=== PATIENT | female | born 1945 | race Caucasian/White ===

== ENCOUNTER 2019-09-27 11:25 | Day surgery (SDC) | payer OTHER, SELFPAY ==
[2019-09-25 07:45] VITALS: BMI 28.1
[2019-09-27] VITALS (9 sets, daily range): BP systolic 115–161; BP diastolic 64–77; PULSE 69–96; RESP 11–28; TEMP 36.1–36.5; O2SAT 94–100; BMI 27.6
--- NOTE | 2019-09-27 | PATH_ITS ---
[facility] Accession Number: [id number] . 01 Material submitted: . vertebral column - L1 VERTEBRAL BIOPSY . 02 Diagnosis: Vertebra, L1, Biopsy: Cartilage and fragmented bone with reactive/reparative changes. No evidence of neoplasia. MRV 10/01/2019 1342 Local . 02 Electronically signed: . Basilia Rueda MD, Pathologist NPI- [id number] . 01 Gross description: . Received in formalin, labeled L1 vertebral BX, is a bone core biopsy (length-1.0 cm, diameter-0.2 cm). Decalcified and submitted intact in cassette A1. ([id number]) /MRV 09/28/2019 1426 Local . 02 Pathologist provided ICD-10: S32.010A . 02 CPT . 041835 Performed at: 01 [facility] [address], [place], [place] [id number] MD Conrad Duncan MD Phone: [phone] Performed at: [address] [facility] [address] [place], [place] [id number] MD Basilia Rueda MD Phone: [phone]
--- NOTE | 2019-09-27 | DI.RAD.S_ITS ---
PROCEDURE: XR LUMBAR SPINE MIN 4V INDICATIONS: L1 KYPHOPLASTY TECHNIQUE: 6 views of the lumbar spine acquired. COMPARISON: [facility], MR, MR LUMBAR SPINE WITHOUT CONTRAST, 08/27/2019, 17:36. FINDINGS: Spot fluoroscopic intraoperative views demonstrating L1 kyphoplasty Dictated by: Everett Medina M.D. on 09/27/2019 at 17:07 Approved by: Everett Medina M.D. on 09/27/2019 at 17:08
--- NOTE | 2019-09-27 14:43 | PM.PREOP ---
Pre-operative Note Interval Note History & Physical reviewed/Exam performed by Physician: Yes Changes to H&P: No
[2019-09-27] MEDS: LACTATED RINGERS 1,000 ML 42 ML IV (15:00)
[2019-09-27] MEDS: CLINDAMYCIN 900 MG/50 ML PIGGYBACK 50 MG IV (15:25)
--- NOTE | 2019-09-27 15:40 | SUR.OPER ---
Prone on spine table, head in foam head support, padded chest and pelvic supports, gel pad at knees, lower legs supported by pillows; nipples, genitalia and toes free of pressure, arms secured on foam padded arm boards at <90 degrees abduction. Tape over blanket at thigh secured to table.
[2019-09-27] MEDS: BUPIVACAINE 0.25% W/ EPI 30 ML VIAL 60 ML INJ (15:51)
--- NOTE | 2019-09-27 16:12 | PM.OP.1 ---
Operative Date/Time/Diagnoses Date of procedure: 09/27/19 Time of procedure: 16:12 Pre-op diagnosis: L1 compression fracture Back pain. Osteoporosis Post-op diagnosis: same Procedure & Clinicians Procedure: L1 kyphoplasty Same procedure as scheduled: Yes Indications: [age] year old female with intractable pain from L1 compression fracture. They had failed conservative management and requested operative intervention. Risks and benefits of surgery were discussed and appropriate consents were obtained. Surgeon: Vic Martin Click Yes if Unassisted: Yes Anesthesia Type: General Operative Notes Findings: None Closure Type: primary Specimen(s): other (L1 vertebral biopsy) Estimated Blood Loss (mL): 2 Blood products transfused: none Procedure in detail: The patient was brought to the operating room and intubated on the table. They were then rolled over to the well-padded prone position. Time-out was performed. We confirmed positioning with two fluoroscopy views. The back was prepped and draped in the standard sterile fashion. Preoperative antibiotics were given. Using fluoroscopic guidance, the planned incision site was infiltrated with Marcaine with epinephrine and injected down to the entry site of the left pedicle of L1. A small stab incision was made and we advanced a Jamshiedi needle down the left pedicle into the vertebral body. This was quite sclerotic getting into the vertebral body but then anteriorly softer. A bone biopsy was harvested from this and sent to pathology. We then passed the DFine osteotome and opened it up to create a void inside the vertebral body. We were able to get across the midline. We then began injecting the cement. This was done with frequent fluoroscopy imaging. She had some early fill but then it started going up towards the disc space with some probable superior migration and we stopped injecting. I wanted more cement and elected to go on the opposite side. Again we used Marcaine in the small stab incision and then under fluoroscopic guidance advanced Jamshidi needle down the right pedicle of L1. We used the osteotome and opened up more from the right. We then began injecting. She had very good fill of the inferior aspect of the bone on this side but it would not go past the midline from there. There was no extravasation. Once we had good fill of the L1 vertebral body the injection was stopped and the trocars were removed. Final x-rays were taken. The wounds were cleaned. Steri-Strips and sterile dressing were placed. Patient was rolled over, extubated, and brought to recovery without complications. Complications: none Post-operative Condition: stable Disposition: PACU Plan for aftercare: Outpatient. Activity as tolerated.
[2019-09-27] MEDS: fentaNYL 100 MCG/2 ML INJ IV (16:35)
[2019-09-27] MEDS: OXYCODONE/ACETAMINOPHEN 5/325 TABLET 1 TAB PO (16:59)
== END 2019-09-27 17:36 | disposition home or self-care (01) ==
PROVIDERS: PCP Family Medicine; Visit Provider Orthopaedic Surgery
PROC: (CPT 22514; principal; 2019-09-27 13:45)
DX: S32.010A Wedge compression fracture of first lumbar vertebra, initial encounter for closed fracture (principal); M80.00XA Age-related osteoporosis with current pathological fracture, unspecified site, initial encounter for fracture; M54.9 Dorsalgia, unspecified; M48.062 Spinal stenosis, lumbar region with neurogenic claudication; I10 Essential (primary) hypertension; E11.9 Type 2 diabetes mellitus without complications; I48.91 Unspecified atrial fibrillation
CPT/HCPCS: 22514; 72110; 76000; C1776; J0330; J2405; J2704; J3010